=== PATIENT | female | born 1970 | race Caucasian/White ===

== ENCOUNTER 2017-04-30 19:00 | Emergency (ER) | payer OTHER ==
[~2017-04-30] VITALS: Ht 170.2 cm; Wt 81.8 kg
[~2017-04-30 19:00] MED LIST: PROT40T PO; VIC5 PO; WARF10TA2 PO; WARF7.5T2 PO; ZOL50 PO
[2017-04-30 19:21] VITALS: BP 185/128; PULSE 64; RESP 16; O2SAT 98
[2017-04-30] MEDS ORDERED: Fluorescein 0.6 mg Ophthalmic Strip ONE (20:16)
[2017-04-30] MEDS ORDERED: 0.9% Sodium Chloride Inhalation Solution ONE (20:16)
[2017-04-30] MEDS ORDERED: Tetracaine 0.5% 4 mL Ophthalmic Solution ONE (20:17)
[2017-04-30 20:23] LABS: BASOPHILS % (AUTO) 0.5 % (0-3); Mean Corpuscular Volume 84.3 fL (81-100); NEUTROPHILS % (AUTO) 41.8 % (40-74); Platelet Count 374 bil/L (150-400)
[2017-04-30 20:28] LABS: INR 2.4 ratio
[2017-04-30 20:34] LABS: APPEARANCE,URINE CLEAR (CLEAR,HAZY); COLOR,URINE STRAW (YELLOW); OCCULT BLOOD,URINE NEGATIVE (NEGATIVE); UROBILINOGEN,URINE NORMAL (NORMAL)
--- NOTE | 2017-04-30 21:01 | ED.REPORT ---
HPI-Eye Problem Date of Service Apr 30, 2017 ED Provider: Dr. Menendez Pt is a 46 year old female with a hx of a partially detached retina requiring laser eye surgery on Coumadin presenting to the ED complaining of right eye vision changes. She states that her retinologist advised her to come in to the ER if she experienced "floaties" in her eye, or any darkening, which she is complaining of. She states that this seems similar to when her retina was partially detached. The patient denies shortness of breath, wheezing, nausea, and vomiting. Nursing Notes Stated Complaint: LOST VISION IN RIGHT EYE Chief Complaint: Eye Nursing Notes Reviewed: Yes Allergies: Coded Allergies: Apple (Verified Allergy, Severe, Anaphylaxis, 07/30/09) Sury Nut (Verified Allergy, Severe, Anaphylaxis, 07/30/09) Moxifloxacin HCl (Verified Allergy, Severe, 08/01/11) Scheduled Pantoprazole-Expunged Drug, Do Not Renew! (Protonix-Expunged Drug, Do Not Renew! ) 40 Mg Tablet.dr 40 MG PO BID Sertraline-Expunged Drug, Choose New Med! (Sertraline-Expunged Drug, Choose New Med!) 50 Mg Tab 50 MG PO DAILY Warfarin Sodium Inactive Drug Do Not Use (Coumadin Inactive Drug Do Not Use) 7.5 Mg Tablet 7.5 MG PO DAILY Warfarin Sodium Inactive Drug Do Not Use (Coumadin Inactive Drug Do Not Use) 10 Mg Tablet 10 MG PO Monday Scheduled PRN Hydrocod/APAP-Expunged, Do Not Renew! (Vicodin-Expunged Drug, Do Not Renew) 1 Tab Tab 1 TAB PO Q6 PRN PRN As needed for pain General Time Seen by MD: 21:00 Chief Complaint Right eye affected Hx Obtained From: Patient Arrived By: Walk-in Symptom Duration: Since onset Progression Since Onset: Constant Location: : Eye right Recent Healthcare: No recent doctor visit, No recent hospitalization Similar Sx Previous: Yes Past Medical History Past Medical History Partially detached retinas bilaterally Antiphospholipid antibody syndrome Asthma Past Surgical History Laser eye surgery for partially detached retina Sinus surgery Colonoscopy, 3 polyps removed at [facility] Lower partial pancreaticectomy Gail spleenectomy in 2009 Smoking History Unknown if Ever Smoker Ambulatory Status Independent Review of Systems Basic Review of Systems Respiratory: No shortness of breath, No wheeze GI: No nausea, No vomiting Eyes: Reports: Visual loss right Complete sys rev & neg: except as marked. Physical Exam Initial Vital Signs Vital Signs (First) Date Time Temp Pulse Resp B/P Pulse Ox O2 Delivery O2 Flow Rate FiO2 04/30/17 19:21 36.7 64 16 185/128 98 Room Air Initial VS: Reviewed, Vital signs normal General / Const: Well-developed, Well-nourished ENT: Mucous membranes moist, Conjunctiva normal, No scleral icterus Neck: Supple, Full range of motion Respiratory: No respiratory distress Abdomen / GI: Soft, Non-tender, No guarding, No rebound, No distention Extremities: Vascular intact, Neuro intact, No swelling, No tenderness Skin: Warm, Dry Neurologic: Alert, Oriented Psychiatric: Mood/affect normal, Behavior normal, Normal thought content Head / Eyes: Atraumatic, No nystagmus dark line running down through her right eye Interpretation & Diagnostics Lab Results Interpretation Result Diagram: 04/30/17 2017 04/30/17 2017 Test 04/30/17 20:00 04/30/17 20:17 Hold Purple Top Tube Received (Received) Hold Blue Top Tube Received (Received) Hold Urine Received (Received) Hold Red Top Tube Received (Received) Hold [place] Top Tube Received (Received) Hold [place] Top Tube Received (Received) White Blood Count 12.1th/mm3 (3.8-10.1) Red Blood Count 4.96mil/mm3 (3.90-5.20) Hemoglobin 14.9g/dL (12.0-15.6) Hematocrit 41.8% (35.0-46.0) Mean Corpuscular Volume 84.3fL (81-100) Mean Corpuscular Hemoglobin 30.0pg (27.0-35.0) Mean Corpuscular Hemoglobin Concent 35.6% (32.0-37.0) Red Cell Distribution Width 13.7% (12.3-15.4) Platelet Count 374bil/L (150-400) Neutrophils (%) (Auto) 41.8% (40-74) Lymphocytes (%) (Auto) 48.5% (14-46) Monocytes (%) (Auto) 8.0% (4-12) Eosinophils (%) (Auto) 1.0% (0-5) Basophils (%) (Auto) 0.5% (0-3) Prothrombin Time 26.1sec (8.1-12.5) Prothromb Time International Ratio 2.40ratio Urine Color Straw (YELLOW) Urine Appearance Clear (CLEAR,HAZY) Urine pH 7.0 (5.0-8.0) Urine Specific [place] 1.005 (1.003-1.035) Urine Protein Negativemg/dL (NEG,TRACE) Urine Glucose (UA) Negativemg/dL (NEGATIVE) Urine Ketones Negativemg/dL (NEGATIVE) Urine Occult Blood Negative (NEGATIVE) Urine Nitrite Negative (NEGATIVE) Urine Bilirubin Negative (NEGATIVE) Urine Urobilinogen Normalmg/dL (NORMAL) Urine Leukocyte Esterase Negative (NEGATIVE) Urine RBC 0-2/hpf (0-2) Urine WBC 0-5/hpf (0-5) Urine Epithelial Cells Moderate/hpf (NONE-MOD) Urine Crystals None seen (NONE SEEN) Urine Bacteria Few/hpf (NONE-FEW) Urine Hyaline Casts None/lpf (NONE) Urine Granular Casts None seen (NONE SEEN) Urine Waxy Casts None seen (NONE SEEN) Urine Red Blood Cell Casts None seen (NONE SEEN) Urine White Blood Cell Casts None seen (NONE SEEN) Urine Mucus None seen (None Seen) Urine Trichomonas None seen (NONE SEEN) Urine Yeast None (NONE SEEN) Urinalysis Comment None Urine Culture Reflexed Not indicated Sodium Level 136mEq/L (134-144) Potassium Level 3.5mEq/L (3.5-5.2) Chloride Level 98mEq/L (97-108) Carbon Dioxide Level 23mmol/L (18-29) Blood Urea Nitrogen 13mg/dL (6-24) Creatinine 0.78mg/dL (0.57-1.00) Estimat Glomerular Filtration Rate 113mL/min (>59) Glucose Level 93mg/dL (60-99) Calcium Level 9.2mg/dL (8.5-10.1) Total Bilirubin 0.5mg/dL (0.0-1.2) Aspartate Amino Transf (AST/SGOT) 22U/L (0-50) Alanine Aminotransferase (ALT/SGPT) 28U/L (0-32) Alkaline Phosphatase 57U/L (25-150) Total Protein 7.2g/dL (6.4-8.4) Albumin 4.2g/dL (3.4-5.0) Re-Eval/Medical Decision Med Decision/Clinical Course 46-year-old presents with prior retinal detachments now with darkening of her right eye only visual field and an apparent retinal edge visible on exam. Discussed with retinal specialist coverage and they will see her this morning at 8:00 at the [facility] in [place]. No more rapid alternative likely available, factoring in travel to [place], intake in the [facility] system, and evaluation there. Discharged in stable condition for follow-up as arranged with specialist care. Re-Evaluation/Progress : Time of Eval: 21:34 Patient Status: Condition improved Re-Evaluation/Progress Note: Patient rechecked. Discussed consultation with Dr. Ortega, retinologist, and plan to discharge. Patient understands and agrees with plan. All questions addressed at this time. Consultation : Call Returned at: 21:27 Note: Spoke with Dr. Ortega, retinologist, concerning the patient. He will see her tomorrow morning. Discharge & Departure Primary Impression: Detached retina, right Additional Impression: Anticoagulation adequate Disposition: Home Discharge Condition All VS Reviewed: Yes Condition: Improved Patient Instructions: Retinal Detachment (ED), Surgery for Retinal Detachment ( GEN) Additional Instructions: Go to [facility] [place] at [address] [facility] at 8 AM tomorrow. A retinal specialist will see you there and consider immediate surgery this morning. Nothing to eat or drink after midnight tonight. Do not take any additional Coumadin Avoid strain and trauma. Their phone number is [phone] Referrals: OTHER,PHYSICIAN (PCP) (Family) Scribe Attestation Portions of this note were transcribed by Mary Arellano and Luis Daniel Quesada. I, Dr. Menendez personally performed the history, physical exam and medical decision -making; I reviewed and confirmed the accuracy of the information in the transcribed note. Signed by: Erika Todd, 04/30/2017 copies to: Dandre Conroy MD, Christopher W MD Apr 30, 2017 21:00 MARY ARELLANO Apr 30, 2017 21:09 Apr 30, 2017 21:13
[2017-04-30] MEDS ORDERED: cloNIDine 0.1 mg Tablet PO ONE (21:45)
[2017-04-30 21:57] VITALS: BP 170/95; PULSE 67; RESP 18; O2SAT 98
== END 2017-04-30 22:05 | disposition home or self-care (01) ==
LOC: SED 19:00
DX: H33.21 Serous retinal detachment, right eye (principal); J45.909 Unspecified asthma, uncomplicated; Z79.01 Long term (current) use of anticoagulants; Z88.1 Allergy status to other antibiotic agents; Z91.018 Allergy to other foods